=== PATIENT | male | born 1975 | race Caucasian/White ===

== ENCOUNTER 2019-07-16 18:59 | Emergency (ER) | payer SELFPAY ==
[~2019-07-16] VITALS: Ht 182.9 cm; Wt 113.6 kg
[2019-07-16] MEDS ORDERED: IBUP-2071 PO (19:18)
[2019-07-16] MEDS ORDERED: GABA-531 PO (19:18)
[2019-07-16] MEDS ORDERED: TAMS-13 PO (19:18)
[2019-07-16] MEDS ORDERED: DIVA-78 PO (19:18)
[2019-07-16] MEDS ORDERED: PREG50 PO (19:18)
[2019-07-16] MEDS ORDERED: KETOROLAC TROMETHAMINE 30 MG/ML VIAL IVP ONE (19:30)
[2019-07-16] MEDS ORDERED: SODIUM CHLORIDE 0.9% 1,000 ML IV ONE (19:30)
[2019-07-16 21:21] VITALS: BP 136/72
== END 2019-07-16 21:44 | disposition home or self-care (01) ==
LOC: EMS 19:04
DX: N20.9 Urinary calculus, unspecified (principal); F31.9 Bipolar disorder, unspecified; F17.210 Nicotine dependence, cigarettes, uncomplicated; Z79.899 Other long term (current) drug therapy
CPT/HCPCS: 74176; 81002; 96374; 99284; J1885; J7030